=== PATIENT | female | born 1945 | race Caucasian/White ===

== ENCOUNTER → 2024-09-27 14:24 | Outpatient (REF) | payer MEDICARE, OTHER, SELFPAY | LOC: WDC 14:24 | PROVIDERS: ATTENDING PHYSICIAN Surgery; FAMILY PHYSICIAN Family Medicine | DX: Z12.31 Encounter for screening mammogram for malignant neoplasm of breast (principal); C50.411 Malignant neoplasm of upper-outer quadrant of right female breast | CPT/HCPCS: 77063; 77067 ==